=== PATIENT | male | born 1940 | race Caucasian/White ===

== ENCOUNTER 2019-08-28 18:04 | Observation (INO) | payer MEDICARE ==
[~2019-08-28 18:04] MED LIST: Iopamidol-370 76% 500 ML 1 ML ONE
[2019-08-28 18:58] LABS: Mean Corpuscular HGB CONC 33.8 g/dL (32.0-36.0); Mean Corpuscular Hemoglobin 35.4 pg (27.0-31.0); Mean Platelet Volume 7.8 fL (7.4-10.4); Platelet Count 247 thou/uL (130-400); RBC Distribution Width 12.2 % (11.5-14.5); Red Blood Cell (RBC) Count 3.96 mill/uL (4.70-6.10); White Blood Cell (WBC) Count 5.4 thou/uL (4.8-10.8)
[2019-08-28 18:59] LABS: #Eosinphils 0.1 thou/uL (0.0-0.7); #Lymphocytes 0.9 thou/uL (1.20-3.40); #Monocytes 0.5 thou/uL (0.11-0.59); #Neutrophils 3.9 thou/uL (1.40-6.50); %Basophils 0.7 % (0.0-1.0); %Eosinophils 1.7 % (0.0-10.0); %Lymphocytes 17.4 % (21.0-51.0); %Monocytes 8.9 % (0.0-10.0); %Neutrophils 71.5 % (42.0-75.0)
[2019-08-28 19:13] LABS: ALT (SGPT) 17 U/L (8-55); AST (SGOT) 14 U/L (5-34); Albumin 4.2 g/dL (3.4-4.8); Alkaline Phosphatase 98 U/L (40-110); Anion Gap 12 mmol/L (10-20); BUN (Urea Nitrogen) 25 mg/dL (8.4-25.7); Bilirubin, Total 0.6 mg/dL (0.2-1.2); Calc. Creatinine Clearance 0 mL/min (70-130); Calcium 9.4 mg/dL (7.8-10.44); Carbon Dioxide 26 mmol/L (23-31); Chloride 110 mmol/L (98-107); Estimated GFR-MDRD Greater than 90; Globulin 2.9 g/dL (2.4-3.5); Glucose 110 mg/dL (83-110); Lipase 13 U/L (8-78); Potassium 3.8 mmol/L (3.5-5.1); Protein, Total 7.1 g/dL (5.8-8.1); Sodium 144 mmol/L (136-145)
[2019-08-28] MEDS ORDERED: Ondansetron PF 4 MG/2 ML Vial ONE (19:18)
[2019-08-28] MEDS ORDERED: Morphine 4 MG/ML VIAL ONE (19:18)
[2019-08-28 19:24] LABS: MDiff Complete? YES; Macrocytosis SLIGHT = 6-15 cells (100X) (0-5/hpf); Platelet Morphology Comment Appears Adequate; Polychromasia SLIGHT = 2-3 cells (100X) (0-2/hpf)
--- NOTE | 2019-08-28 19:59 | CT ---
Exam: Chest CT with contrast Abdomen CT with contrast Pelvic CT with contrast Limited CT of the thoracic and lumbar spine HISTORY: Fall. Unable to get up. Chronic back pain. Correlation: None COMPARISON: None FINDINGS: Chest CT: Mediastinum: No mass, lymphadenopathy or hematoma. Aorta: Thoracic and abdominal aorta demonstrate minimal atherosclerosis. No significant occlusion. No aneurysm or dissection. Heart: Normal heart size. No significant pericardial fluid. There are coronary artery calcifications Trachea and central bronchi: Patent Pleural spaces: No pleural effusion Right lung: No mass, consolidation or contusion. Dependent atelectatic changes are noted Left lung:No mass, consolidation or contusion. Dependent atelectatic changes are noted. Pneumothorax: None Abdomen CT: Gallbladder: Unremarkable Portal vein: Patent Liver: Multiple hypodense lesions scattered throughout the hepatic parenchyma. Right hepatic lobe hyp odensity measures 0.7 x 0.6 cm. Left hepatic lobe hypodensities measures 0.6 x 0.6, 0.5 x 0.8, 1.3 x 0.7 cm. There is a hyperdense focus in the posterior segment of the right hepatic lobe measuring 1. 0 x 1.3 cm.. Spleen: Appropriate enhancement Pancreas: Appropriate enhancement Adrenal glands: Appropriate enhancement Lymphadenopathy: No gastrohepatic, retrocrural or periportal lymphadenopathy Kidneys: Multiple hypodensities in the left or right renal cortex suggesting cortical cysts. No defin ite solid enhancing mass. Nonobstructing calculus in the lower pole the left kidney measuring 1 mm. Bilaterally no obstructive uropathy. Mesentery: No mass, lymphadenopathy, free air or free fluid Alimentary canal: Limited evaluation by the absence of oral contrast. No evidence of a small bowel ob struction. Ileocecal junction is unremarkable. Appendix is not appreciated. No inflammation at the cecal apex. Scattered fecal material in a nondistended, nondilated colon. Occasional diverticulum. No diverticulitis. Pelvis CT: Mildly enlarged prostate gland. Unremarkable urinary bladder. No pelvic mass, lymphadenopathy, free a ir or free fluid. Osseous structures:Bilateral clavicles, scapula and humeri are intact. No evidence of a bony thoracic fracture. No evidence of a bony pelvic fracture. Iliac wings, obturator rings and visualized heads are intact. Sacrum is intact. Sacral ala are preserved. Limited CT of the thoracic and lumbar spine: Multilevel osteophyte formation. Correlate for DISH.. No definite thoracic spine fracture. There does appear to be a inferior endplate fracture at T12. Grade 1 anterolisthesis of L4 upon L5 likely due to facet arthropathy/hypertrophy. Vascular: Nonspecific venous collaterals in the left chest and neck. Despite the presence of collaterals, there does appear to be a patent left brachiocephalic vein and superior vena cava. There may be a component of high-grade stenosis in the left subclavian vein. IMPRESSION: 1. No posttraumatic change in the chest, abdomen or pelvis. 2. Nondisplaced inferior endplate fracture at T12. 3. Hypervascular focus in the right hepatic lobe. Correlate for flash filling hemangioma versus a hyp ervascular metastatic lesion. Further interrogation with nonemergent abdomen MRI. 4. Additional findings as above. Transcribed Date/Time: 08/28/2019 8:27 PM
[2019-08-28] MEDS ORDERED: Ketorolac Tromethamine 30 MG/ML VIAL ONE (20:32)
[2019-08-28] MEDS ORDERED: Lorazepam 2 MG/ML VIAL ONE (20:32)
[2019-08-28 20:47] LABS: Bilirubin Negative (Negative); Blood, Urine Negative (Negative); Clarity Clear (Clear); Glucose, Urine (Dipstick) Normal (Negative); Leukocyte Negative Leu/uL (Negative); Nitrite Negative (Negative); Protein, Urine (Dipstick) 20 mg/dL (Neg-Trace); Urobilinogen Normal mg/dL (Less than 2)
[2019-08-28 21:05] LABS: Phosphorus 2.3 mg/dL (2.3-4.7)
[2019-08-28] MEDS ORDERED: Dextrose 5% in Water 1,000 ML IV PRN (21:28)
[2019-08-28] MEDS ORDERED: Ondansetron PF 4 MG/2 ML Vial IVP PRN (21:28)
[2019-08-28] MEDS ORDERED: Dextrose 50% Abboject 50 ML SYRINGE SLOW IVP PRN (21:28)
[2019-08-28] MEDS ORDERED: hydrALAZINE 20 MG/ML VIAL SLOW IVP PRN (21:28)
[2019-08-28] MEDS ORDERED: traMADol HCl 50 MG TAB PO PRN (21:33)
[2019-08-28] MEDS ORDERED: Potassium Phosphate 15 MMOL in Sodium Chloride 0.9% 100 ML IVPB SCH (22:00)
--- NOTE | 2019-08-28 22:35 | CON ---
DATE OF CONSULTATION: 08/28/2019 CHIEF COMPLAINT: Low back pain, falls, inability to ambulate. HISTORY OF PRESENT ILLNESS: Mr. García is a pleasant 79-year-old gentleman who presented to the emergency department this evening for evaluation of low back pain, multiple recent falls, and inability to ambulate. The patient's is at bedside and provides additional history. He states the patient has fallen 4 times in the last 4 days. He states that typically these falls occur when he is transitioning out of bed or out of a chair. Many of the falls have been him sliding out of the bed or chair onto the ground. The patient has been unable to walk since falling earlier today. He reports significant pain in his lower back. He also reports pain in the bilateral lateral thighs, but does not extend past the knee. However, he states that the pain in his leg is very minor in comparison to the pain in his back. He has no prior history of spinal surgeries. He states that he has residual weakness in his right arm due to polio. The patient's states that he has been diagnosed with Alzheimer disease. There is also a possibility that he has Parkinson's disease given his father had a history of Parkinson's. He has chronic tremor in his bilateral upper extremities. The patient takes aspirin. states that he was told to take 81 mg aspirin, but she thinks that he has been taking 325 mg aspirin. No tobacco use. The patient also notes some left paracervical pain that radiates across the top of the shoulder. He states that this has been ongoing for "a while." The only weakness he reports is in his right arm, again chronic in nature. PHYSICAL EXAMINATION: GENERAL: The patient is awake, alert and appropriate. EXTREMITIES: He has excellent strength throughout his upper and lower extremities bilaterally. Any weakness that he has in his right arm is trace in nature. He has a baseline tremor that is constant in his bilateral upper extremities. Sensation to light touch is intact and equal bilaterally. Gait was not assessed. The patient was placed in a TLSO brace upon arrival to the emergency department, however, this will have to be changed as it was incorrect and not a TLSO clamshell. IMPRESSION AND DIAGNOSES: 1. Low back pain with multiple recent falls. 2. Inability to ambulate. 3. History of Alzheimer disease. 4. Chronic tremor, likely essential tremor. 4. History of polio. 5. On aspirin. PLAN: At this time, I have discussed this case and reviewed imaging with Dr. Elizabeth. The patient had a CT of the chest, abdomen, and pelvis completed upon arrival to the emergency department this evening. It revealed findings of a T12 inferior endplate fracture, as well as L4-L5 grade I spondylolisthesis. There are also chronic degenerative changes of the spine. At this time, the patient has no significant radiculopathy symptoms or weakness in his legs. Therefore, we will hold on having an MRI of the lumbar spine completed at this time. However, we will place a consult to [facility] to fit the patient for a TLSO clamshell brace. Our trauma colleagues have admitted the patient for pain control and he will likely be transitioned to inpatient rehab for physical therapy to help with mobilization. We will follow patient during his hospital stay. We will see patient tomorrow morning. Please call for any neurologic changes or other concerns. This was a 50 minute initial visit in which greater than 50% of the time was spent in review of records, imaging, evaluation, examination of patient, and formulation of plan. The remaining time was spent in counseling and coordination of care. Job ID: [id number] MTDD
[2019-08-28 23:22] VITALS: BMI 21.7
--- NOTE | 2019-08-28 23:53 | HP ---
TRAUMA SURGEON: Lucas Martinez DO CONSULTING PHYSICIAN: Dr. Elizabeth. HISTORY OF PRESENT ILLNESS: The patient is a 79-year-old male who presented to the emergency department via EMS after he had a mechanical fall from bed today. The patient reports he has fallen every day either out of his chair or bed for the past four days or so. The at the bedside reports that the patient does not have the strength to pick himself up out of the chair or the bed, subsequently, has been falling. Patient otherwise denies any weakness or malaise, chest pain or shortness of breath. Reports he feels fine except for the pain in his lower back. Strength is normal and equal in bilateral upper and lower extremities. Patient does have a history of polio that affected his right upper extremity; however, strength is still very good in that extremity. He denies loss of consciousness or anticoagulation use. He complains of back pain. Denies numbness and tingling or shooting pains in his upper and lower extremities. REVIEW OF SYSTEMS: All additional 10-point review of systems negative except as indicated above. PAST MEDICAL HISTORY: Alzheimer's and polio with residual affects of the right arm. The patient also does have a tremor that his primary care physician is working up,, concern for either essential primary tremor or Parkinson disease. Patient's father had Parkinson's. PAST SURGICAL HISTORY: Appendectomy. SOCIAL HISTORY: The patient lives at home with his . He denies tobacco, drug, and alcohol use. MEDICATIONS: The patient is a poor historian when it comes to his medication, but he does use [facility] in [facility]. He does take, 1. 81 mg aspirin daily. 2. Donepezil. Otherwise, we will complete his med rec after contacting his pharmacy. ALLERGIES: NO KNOWN DRUG ALLERGIES. PHYSICAL EXAMINATION: VITAL SIGNS: The patient is afebrile and hemodynamically stable, saturating greater than 92% on room air. PRIMARY SURVEY: Airway intact. Adequate breath sounds bilaterally. 2+ pulses in bilateral radials, femorals, and DPs. GCS 15. Gross motor and sensation intact. No lacerations, bruising, or external bleeding. SECONDARY SURVEY: HEAD: Normocephalic and atraumatic. No gross palpable skull deformities or tenderness. EYES: Pupils 3 to 2, equal, round, reactive to light bilaterally. ENT: No hemotympanum. No epistaxis. No septal hematoma. Midface stable to manipulation. No blood in the oropharynx. Dentition is intact. No anterior neck injury/crepitus/tenderness. C-SPINE: No step-offs or deformities. Nontender. C-collar not in place. CHEST: Nontender. No crepitus. No abrasions or ecchymosis noted. Equal chest movement. ABDOMEN: Soft, nontender, nondistended. PELVIS: Stable to palpation. Nontender. No abrasions or ecchymosis noted. RECTAL: Deferred. GENITOURINARY: Deferred. EXTREMITIES: No gross deformities. Patient's right biceps is slightly smaller than the left due to previous polio, but there are no signs of trauma to the bilateral upper and lower extremities. 2+ pulses in bilateral radials, femorals, and DPs. BACK/SPINE: No step-offs or deformities to the T or L-spine. There is a mid back T-spine tenderness with no abrasions or ecchymosis noted. NEUROLOGIC: 5/5 strength in bilateral certified scrum master, plantar flexion, dorsiflexion. Gross normal sensation x4 extremities. LABORATORY FINDINGS: White count 5.4, hemoglobin 14.0, hematocrit 41.5, platelets 247. Sodium 144, potassium 3.8, chloride 110, bicarb 27, BUN 25, creatinine 0.79, glucose 110, phosphorus 2.3, magnesium 2.0. UA is negative. DIAGNOSTIC FINDINGS: CT scan of the chest, abdomen, and pelvis demonstrates no posttraumatic changes to the chest, abdomen, or pelvis, nondisplaced inferior endplate fracture at T12. Hypervascular foci at the right hepatic lobe correlate with flash filling hemangioma versus a hypervascular metastatic lesion. Further interrogation with nonemergent abdominal MRI. ASSESSMENT: 1. Status post mechanical fall from bed. 2. T12 inferior endplate fracture, nonoperative. 3. Hepatic lesion, requiring further workup outpatient. 4. History of Alzheimer's and polio. PLAN: The patient will be admitted to the Trauma Service under obs. Emergency department physician did attempt to place the patient back in [facility] but the facility is full. He has been accepted to continue physical and occupational therapy until there is a bed available for him. We also asked Neurosurgery to see the patient. They have recommended TLSO brace. They will see how the patient works with Physical Therapy and consider possible MRI if indicated. We will complete a med rec after contacting his pharmacy and restart his home medications as clinically indicated. This patient was discussed with Dr. Martinez before this dictation. Job ID: [id number]
[2019-08-29] MEDS: Acetaminophen 500 MG TAB PO SCH ×4 (01:31→17:31)
[2019-08-29] MEDS ORDERED: Prevnar 13-Val Conj/PF 0.5 ML SYRINGE IM ONE (09:00)
[2019-08-29] MEDS ORDERED: FLU VACC TS2019-20(65YR UP)/PF 180 MCG/0.5 ML SYRINGE IM ONE (09:00)
[2019-08-29] MEDS: traMADol HCl 50 MG TAB PO SCH ×2 (11:15→17:31)
[2019-08-29] MEDS: Gabapentin 100 MG CAP PO SCH ×3 (11:16→20:49)
[2019-08-29] MEDS: Senokot S 8.6-50 MG TAB PO SCH ×2 (11:17→20:49)
[2019-08-29] MEDS: Polyethylene Glycol 3350 17 GM Packet PO SCH (11:17)
--- NOTE | 2019-08-29 12:04 | PRG ---
DATE OF SERVICE: 08/29/2019 Mr. García is a 79-year-old man admitted after a fall. He has a lower thoracic endplate fracture and chronic lumbar spondylolisthesis. He also has likely undiagnosed Parkinson disease. He says other than low back pain he is doing well. We have ordered a TLSO clamshell. He is neurologically intact with again tremor and cogwheel rigidity. He should wear the brace when out of bed. We will arrange for followup in 6 weeks with upright AP lateral thoracic spine x-rays. Job ID: [id number]
[2019-08-29] MEDS: traMADol HCl 50 MG TAB PO PRN (15:05)
[2019-08-29] MEDS: Cyclobenzaprine 10 MG TAB PO PRN (15:05)
--- NOTE | 2019-08-29 16:09 | PRG ---
DATE OF SERVICE: 08/29/2019 This is Shweta Braswell NP dictating a report for Lucas Martinez DO. SUBJECTIVE: This is a 79-year-old male, who was admitted yesterday for multiple mechanical falls. The patient has a T12 endplate fracture, in which he has been evaluated by Neurosurgery and is pending a fitted clamshell TLSO brace. The patient is currently awake, alert. Reports moderate pain with movement. The patient is tolerating a regular diet and voices no other complaints or concerns at this time. OBJECTIVE: VITAL SIGNS: Temperature 97.8, respirations 16, heart rate 89, SpO2 of 96% on room air, and blood pressure 144/83. GENERAL: Elderly male, in no acute distress. Awake, alert. HEENT: Head is atraumatic and normocephalic. RESPIRATORY: Equal chest rise and fall, bilateral breath sounds clear. EXTREMITIES: No gross deformities. Moves all extremities. NEUROLOGIC: GCS is 15. Strength 5/5 in all extremities. ASSESSMENT: 1. Status post mechanical fall. 2. T12 inferior endplate fracture, nonoperative. 3. Hepatic lesion, requiring further workup as outpatient. 4. History of Alzheimer's and polio. PLAN: Continue pain regimen and regular diet. Continue physical and occupational therapy. The patient has been accepted to inpatient rehab, but there is no bed available at this time. The patient is ready for discharge once bed is available. The patient was examined by Dr. Martinez during morning rounds. We will schedule the patient's tramadol 50 mg and 50 p.r.n. as the patient has had moderate amount of pain. Job ID: [id number]
[2019-08-30] MEDS: Acetaminophen 500 MG TAB PO SCH ×6 (00:31→22:18)
[2019-08-30] MEDS: Cyclobenzaprine 10 MG TAB PO PRN (00:37)
[2019-08-30] MEDS: traMADol HCl 50 MG TAB PO SCH ×5 (00:52→22:19)
--- NOTE | 2019-08-30 04:06 | PRG ---
DATE OF SERVICE: 08/29/2019 SUBJECTIVE: The patient was seen this evening, lying in bed, resting comfortably and asleep with no signs of acute distress. Nursing reported no acute events. OBJECTIVE: VITAL SIGNS: Temperature 99.3, pulse 71, respirations 18, oxygen saturation 95% on room air, and blood pressure 150/77. GENERAL: Well-appearing elderly male, lying in bed, asleep with no signs of acute distress. PULMONARY: Equal chest rise and fall. No signs of acute respiratory distress. ASSESSMENT: 1. Status post multiple mechanical falls. 2. T12 endplate fracture, nonoperative. 3. History of polio with right upper extremity weakness and Alzheimer disease. PLAN: Continue current diet and pain regimen. Continue physical and occupational therapy. The patient is pending placement in acute rehab facility. Neurosurgery has seen the patient, who recommends the patient wear a clamshell TLSO brace. The patient refusing physical therapy today. We will start the patient on Lovenox for DVT prophylaxis. He is ready for discharge at this time. I am told that he was accepted by the rehab facility. We are waiting for a bed. Job ID: [id number]
[2019-08-30] MEDS: Enoxaparin Sodium 40 MG/0.4 ML SYRINGE SC SCH (08:56)
[2019-08-30] MEDS: Polyethylene Glycol 3350 17 GM Packet PO SCH (08:56)
[2019-08-30] MEDS: traMADol HCl 50 MG TAB PO PRN ×2 (08:58→22:19)
[2019-08-30] MEDS: Amlodipine 5 MG TAB PO SCH (09:00)
[2019-08-30] MEDS: Aspirin 81 mg Enteric Coated Tablet PO SCH (09:00)
[2019-08-30] MEDS: Senokot S 8.6-50 MG TAB PO SCH ×2 (09:01→20:05)
[2019-08-30] MEDS: Citalopram 10 MG TAB PO SCH (09:01)
[2019-08-30] MEDS: Gabapentin 100 MG CAP PO SCH ×3 (09:01→20:03)
--- NOTE | 2019-08-30 10:47 | PRG ---
DATE OF SERVICE: 08/30/2019 This is Rico Roldan PA-C dictating a report for Og Elizabeth MD. This is a 50-minute subsequent patient evaluation of which greater than 50% of the exam was spent in counseling and coordinating the patient's care, remainder of the exam was spent in review of the patient's medical records and formulation of treatment plan. Mr. García is hospital day #2 having low back pain. The patient does have a clamshell TLSO brace as he does have longstanding L4-5 grade 1 spondylolisthesis, but the need for the brace will be for his anterior column fracture at T12. He must wear his brace anytime he is out of bed. Once he is ambulating, he will be stable for discharge. The patient yesterday wished no role for surgery, we are in agreement with this. We will follow up with him in the next 4-6 weeks with upright AP lateral lumbar spine x-rays up to the T12 level. Per report, the patient is moving all extremities to command. He will later need a referral to Neurology for his essential tremor and likely Parkinson's. He has strong family history for Parkinson's. Nonetheless, we will follow up in our outpatient clinic and sign off at this time. Please call with any changes in patient's neurologic status. Job ID: [id number]
--- NOTE | 2019-08-30 13:20 | PRG ---
DATE OF SERVICE: 08/30/2019 SUBJECTIVE: The patient was seen this morning during rounds, lying in hospital bed, in no acute distress. The patient had no overnight events. The patient is mildly confused and when asked about breakfast he states he did not feel like eating. The patient states that he just wants to go home. I spoke with the patient's daughter who reports his mentation has gotten worse and the patient has been difficult and will not listen and go to any of his doctor's appointments. 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 The patient frequently has inappropriate behaviors that is out of the patient's norm per family. Family is requesting Neurology to see patient. The patient is also requesting assisted facility for long-term placement as the patient's is not able to care for him. OBJECTIVE: VITAL SIGNS: Temperature 97.5, pulse 70, respirations 18, SpO2 of 96% on room air, blood pressure 130/78. GENERAL: Elderly male, lying in hospital bed, mildly agitated, fine tremors in all extremities. No respiratory distress. PULMONARY: Equal chest rise and fall, bilateral breath sounds clear. ABDOMEN: Soft, nontender, nondistended. EXTREMITIES: Moves all extremities. Tremors in all extremities. Distal pulses intact. LABORATORY DATA: There is no new labs to evaluate today. ASSESSMENT: 1. Status post multiple mechanical falls. 2. T12 endplate fracture, non operative. 3. History of polio with right upper extremity weakness. 4. Alzheimer's dementia. PLAN: Continue current diet and pain regimen. Continue physical and occupational therapy. We will place a case management consult to see about changing patient from inpatient rehab in which he had previously been accepted, but no bed was available to assisted facility for long-term placement. Continue clamshell TLSO brace per Neurosurgery recommendations. Continue VTE prophylaxis. The patient has been refusing physical therapy. We will place a neurology consult on Saturday per family's request. The patient was examined by Dr. Martinez during rounds. Job ID: [id number]
[2019-08-30] MEDS: Donepezil HCl 10 MG TAB PO SCH (20:05)
--- NOTE | 2019-08-31 03:39 | PRG ---
DATE OF SERVICE: 08/30/2019 SUBJECTIVE: The patient was seen this evening during rounds. He was resting comfortably and asleep with no signs of acute distress. Nursing reported no acute events. OBJECTIVE: VITAL SIGNS: Temperature 97.9, pulse 63, respirations 18, oxygen saturation 96% on room air, and blood pressure 129/73. GENERAL: Well-appearing elderly male, lying in bed, asleep. No signs of acute distress. PULMONARY: Equal chest rise and fall. Clear breath sounds bilaterally. No signs of acute respiratory distress. ASSESSMENT: 1. Status post mechanical fall from standing. 2. T12 endplate fracture, nonoperative. 3. History of polio affecting the right upper extremity. 4. Alzheimer disease. PLAN: Continue current diet and pain regimen. Continue physical and occupational therapy. Continue all home medications as previously restarted. The patient is pending placement at a senior living facility. He is ready for discharge at this time. Job ID: [id number]
[2019-08-31] MEDS: Acetaminophen 500 MG TAB PO SCH ×4 (03:53→23:08)
[2019-08-31] MEDS: traMADol HCl 50 MG TAB PO PRN (03:53)
[2019-08-31] MEDS: traMADol HCl 50 MG TAB PO SCH ×4 (03:53→23:08)
[2019-08-31] MEDS: Aspirin 81 mg Enteric Coated Tablet PO SCH (09:23)
[2019-08-31] MEDS: Polyethylene Glycol 3350 17 GM Packet PO SCH (09:23)
[2019-08-31] MEDS: Gabapentin 100 MG CAP PO SCH ×3 (09:23→20:33)
[2019-08-31] MEDS: Senokot S 8.6-50 MG TAB PO SCH ×2 (09:25→20:33)
[2019-08-31] MEDS: Enoxaparin Sodium 40 MG/0.4 ML SYRINGE SC SCH (09:26)
[2019-08-31] MEDS: Citalopram 10 MG TAB PO SCH (09:26)
[2019-08-31] MEDS: Amlodipine 5 MG TAB PO SCH (09:27)
--- NOTE | 2019-08-31 16:03 | PRG ---
DATE OF SERVICE: 08/31/2019 SUBJECTIVE: The patient was seen this morning during rounds, lying in hospital bed, awake, alert, in no distress. The patient had no overnight events. The patient is currently oriented to person and place at this time. The patient is unaware of the date. The patient follows commands at this time. Daughter is at bedside, who states that he has episodes of being confused still. The patient did ambulate to the shower using a walker earlier today. The patient continues to have tremors. The patient reports that his pain is well controlled at this time. OBJECTIVE: VITAL SIGNS: Temperature 98.0, pulse 54, respirations 16, SpO2 of 96% on room air, and blood pressure 140/63. GENERAL: Elderly male, lying in hospital bed. Awake, alert, fine tremors in all extremities. PULMONARY: Equal chest rise and fall, no respiratory distress. EXTREMITIES: Moves all extremities, fine tremors noted, good strength in all extremities, distal pulses intact. LABORATORY DATA: There is no new labs to evaluate today. ASSESSMENT: 1. Status post multiple mechanical falls. 2. T12 endplate fracture, nonoperative. 3. History of polio with right upper extremity weakness. 4. Delirium in the context of pain medication, fracture, Alzheimer's. 5. Bradycardia of uncertain significance. PLAN: Continue current diet and pain regimen. Continue to have Physical and Occupational Therapy work with the patient. Neurology consult has been placed. Most likely, the patient will need to go as an outpatient service. We will place a referral. Family is deciding on a correction facility at this time as they have made a decision that he will need long-term placement instead of inpatient rehab. Continue DVT prophylaxis with Lovenox. Continue clamshell TLSO brace when out of bed. The plan was discussed with the attending, who agrees. Job ID: [id number]
[2019-08-31] MEDS: Donepezil HCl 10 MG TAB PO SCH (20:33)
--- NOTE | 2019-09-01 00:54 | PRG ---
DATE OF SERVICE: 08/31/2019 SUBJECTIVE: The patient was seen this evening during rounds. He was awake and reported that pain was well controlled. He stated he wanted to go home and I reassured him that it was nighttime and we will come up with the discharge plan tomorrow. Nursing reports the patient is intermittently confused, but cooperative. OBJECTIVE: VITAL SIGNS: Temperature 97.6, pulse 63, respirations 18, oxygen saturation 94% on room air, and blood pressure 160/84. GENERAL: Well-appearing elderly male, sitting up in bed with no signs of acute distress. PULMONARY: Equal chest rise and fall. No signs of acute respiratory distress. ASSESSMENT: 1. Status post mechanical fall from standing. 2. T12 endplate fracture, nonoperative. 3. History of Alzheimer disease and polio affecting his right upper extremity. PLAN: Continue current diet and pain regimen. Continue physical and occupational therapy. He is pending placement at a [facility] facility where he can become a long-term resident. Family is working with Case Management to set this up. The patient will also be referred to outpatient Neurology for concern for Parkinson's. Job ID: [id number]
[2019-09-01] MEDS: traMADol HCl 50 MG TAB PO SCH ×4 (04:57→21:51)
[2019-09-01] MEDS: Acetaminophen 500 MG TAB PO SCH ×4 (05:14→21:49)
[2019-09-01] MEDS: Citalopram 10 MG TAB PO SCH (08:14)
[2019-09-01] MEDS: Aspirin 81 mg Enteric Coated Tablet PO SCH (08:14)
[2019-09-01] MEDS: Polyethylene Glycol 3350 17 GM Packet PO SCH (08:15)
[2019-09-01] MEDS: Gabapentin 100 MG CAP PO SCH ×3 (08:15→19:52)
[2019-09-01] MEDS: Amlodipine 5 MG TAB PO SCH (08:15)
[2019-09-01] MEDS: Senokot S 8.6-50 MG TAB PO SCH ×2 (08:15→19:52)
[2019-09-01] MEDS: Enoxaparin Sodium 40 MG/0.4 ML SYRINGE SC SCH (08:15)
--- NOTE | 2019-09-01 13:10 | PDOC.GSPN ---
Surgery Progress Note: Subj - Subjective Narrative: Patient is hospital day #4 s/p mechanical fall from standing with a nonoperative T12 endplate fracture. He reports doing well overnight and sleeping well with pain well controlled. He is tolerating a regular diet and ambulating. He states he wishes to be discharged. He denies uncontrolled pain, difficulty with diet, or confusion Surgery Progress Note: Obj - Vital signs Vital signs: Vital Signs - Most Recent Temp Pulse Resp BP Pulse Ox 97.7 F 65 18 136/77 95 09/01/19 11:33 09/01/19 11:33 09/01/19 11:33 09/01/19 11:33 09/01/19 11:33 - Physical Exam General: no distress, well developed, well nourished Respiratory: normal expansion, normal respiratory effort Psychiatric: memory intact, oriented to time, oriented to person, oriented to place, speech is normal Surgery Progress Note: Results - Labs Result Diagrams: 08/28/19 18:40 08/28/19 18:40 Surgery Progress Note: A/P - Plan Plan: Assessment 1. S/P mechanical fall from standing 2.T12 endplate fx, nonoperative 3. 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 Continue PT and OT. He is pending insurance authorization of placement into a SNF for correction care. Will anticipate discharge tomorrow Patient was seen with Dr Martinez on morning rounds. Plan was discussed with him and patient and all are in agreement Addendum - Physician - Physician Attestation Date/Time: 09/01/19 [id number] I personally performed or re-performed the physical examination and medical decision making. I have verified all student documentation or findings, including history, physical exam and/or medical decision making.
[2019-09-01] MEDS: Donepezil HCl 10 MG TAB PO SCH (19:52)
--- NOTE | 2019-09-02 02:09 | PRG ---
DATE OF SERVICE: 09/02/2019 SUBJECTIVE: Patient is currently on the surgical floor. He is status post ground level fall, in which he sustained a T12 endplate fracture. The patient is being treated nonoperatively and is currently awaiting placement. The patient is tolerating a diet. His pain is controlled. He has been working with Physical and Occupational Therapy. He reports that he is tolerating his TLSO brace. PHYSICAL EXAMINATION: VITAL SIGNS: Temperature 98.2, heart rate 63, blood pressure 145/78, respirations 18, oxygen saturation is 96% on room air. GENERAL: The patient is resting comfortably in bed. He is asleep and I did not awaken him. He appears comfortable. No signs of distress. RESPIRATIONS: Appear nonlabored. ASSESSMENT AND PLAN: 1. Status post ground level fall. 2. T12 endplate fracture, treated conservatively. 3. History of Alzheimer's disease and polio affecting his right upper extremity. PLAN: Will be to continue supportive care. Encourage physical and occupational therapy and await placement decision. Job ID: [id number]
[2019-09-02] MEDS: Acetaminophen 500 MG TAB PO SCH ×3 (06:09→14:52)
[2019-09-02] MEDS: traMADol HCl 50 MG TAB PO SCH (06:09)
[2019-09-02] MEDS: Senokot S 8.6-50 MG TAB PO SCH (08:12)
[2019-09-02] MEDS: Gabapentin 100 MG CAP PO SCH ×2 (08:12→14:52)
[2019-09-02] MEDS: Aspirin 81 mg Enteric Coated Tablet PO SCH (08:12)
[2019-09-02] MEDS: Amlodipine 5 MG TAB PO SCH (08:13)
[2019-09-02] MEDS: Enoxaparin Sodium 40 MG/0.4 ML SYRINGE SC SCH (08:13)
[2019-09-02] MEDS: Citalopram 10 MG TAB PO SCH (08:13)
[2019-09-02] MEDS: Polyethylene Glycol 3350 17 GM Packet PO SCH (08:16)
[2019-09-02 15:18] VITALS: BP 136/74; TEMP 97.8
--- NOTE | 2019-09-03 04:06 | DIS ---
DATE OF ADMISSION: 08/28/2019 DATE OF DISCHARGE: 09/02/2019 ADMISSION DIAGNOSES: 1. Status post ground level fall. 2. T12 endplate fracture. 3. History of Alzheimer disease and polio affecting his right upper extremity. DISCHARGE DIAGNOSES: 1. Status post ground level fall. 2. T12 endplate fracture conservative treatment with braces. 3. History of Alzheimer's disease and polio affecting his right upper extremity. HOSPITAL COURSE: Mr. García is a 79-year-old male, status post ground level fall. He sustained T12 endplate fracture, has been treated conservatively by neurosurgeon. The patient has been doing well. Pain is well controlled. He is able to work with Physical Therapy and Occupational Therapy. He is tolerating with his regular diet. Neurosurgeon has approved for Lovenox for DVT prophylaxis. The patient has been treated for T12 endplate fracture using TLSO brace while he sits and stand up. The patient tolerated the brace well. PHYSICAL EXAMINATION: GENERAL: Currently, the patient is lying in bed comfortable with no acute respiratory distress. VITAL SIGNS: Temperature 97.8, heart rate is 56, respiratory rate 18, O2 saturation 98% on room air, blood pressure 136/74. TLSO brace is in place. The patient developed no sign of shortness of breath. LUNGS: Clear bilaterally. HEART: Regular rate and rhythm. ABDOMEN: Soft, nondistended. EXTREMITIES: Neurovascularly intact x4. NEUROLOGIC: No focal neurology deficits. DISCHARGE DISPOSITION: senior living facility. DISCHARGE CONDITION: Fair due to age and comorbidity. DISCHARGE INSTRUCTIONS: The patient is to take medication as directed. The patient is to continue DVT prophylaxis. The patient is encouraged working with Physical Therapy and Occupational Therapy. The patient is to see Dr. Elizabeth in 4 to 6 weeks with spine x-ray. DISCHARGE MEDICATIONS: 1. Tylenol. 2. Amlodipine. 3. Aspirin. 4. Lovenox. 5. Gabapentin. 6. Hydralazine. 7. Senokot. 8. Tramadol. Job ID: [id number]
== END 2019-09-02 16:50 ==
LOC: ERS 18:04 → SURG A 21:33
PROVIDERS: ADMIT Surgery; ATTEND Surgery
DX: S22.088A Other fracture of T11-T12 vertebra, initial encounter for closed fracture (principal); M43.16 Spondylolisthesis, lumbar region; G30.9 Alzheimer's disease, unspecified; F02.80 Dementia in other diseases classified elsewhere, unspecified severity, without behavioral disturbance, psychotic disturbance, mood disturbance, and anxiety; K76.9 Liver disease, unspecified; R25.1 Tremor, unspecified; F32.9 Major depressive disorder, single episode, unspecified; R00.1 Bradycardia, unspecified; Z86.12 Personal history of poliomyelitis; Z79.82 Long term (current) use of aspirin; Z79.899 Other long term (current) drug therapy; W06.XXXA Fall from bed, initial encounter
CPT/HCPCS: 36415; 71260; 74177; 80053; 81003; 83690; 83735; 84100; 85025; 96361; 96365; 96366; 96372; 96374; 96375; G0378; G0390; J1650; J1885; J2060; J2270; J2405; J3490; Q9967